=== PATIENT | male | born 1995 | race Two or more races ===

== ENCOUNTER 2023-06-28 22:38 | Emergency (ER) | payer OTHER ==
[2023-06-28 22:45] VITALS: BMI 31.6
[2023-06-29 01:01] LABS: EPI CELLS 2 /uL (0-25.1); HYALINE CASTS 0 /uL (0-3.1); PH,URINE 5.5 (5.0-8.0); URINE APPEARANCE CLEAR; URINE BACTERIA 2 /uL (0-1359); URINE BILIRUBIN NEGATIVE (NEGATIVE); URINE COLOR YELLOW; URINE GLUCOSE (UA) NEGATIVE (NEGATIVE); URINE KETONE NEGATIVE (NEGATIVE); URINE LEUK ESTERASE 1+ (NEGATIVE); URINE NITRITE NEGATIVE (NEGATIVE); URINE PROTEIN NEGATIVE (NEGATIVE); URINE RBC 7 /uL (0-23.9); URINE WBC 70 /uL (0-25.8)
[2023-06-29 02:00] LABS: BASO % 0.9 % (0-2.0); EOS % 2.5 % (0-4.5); HEMATOCRIT 42.3 % (35.4-49); HEMOGLOBIN 14.4 GM/dL (11.7-16.9); LYMPH % 42.4 % (8-40); MCH 29.8 pg (25.7-33.7); MCHC 33.9 g/dl (32.0-35.9); MEAN CELL VOLUME 87.7 fl (80-96); MEAN PLT VOLUME 7.3 fl (7.5-11.1); MONO % 11.3 % (3.8-10.2); NEUT % 42.9 % (42.8-82.8); PLATELET COUNT 291 10^3/uL (134-434); RBC 4.82 M/mm3 (4.00-5.60); RDW 13.1 % (11.9-15.9); WHITE BLOOD COUNT 7.6 K/mm3 (4.0-10.0)
[2023-06-29 02:25] LABS: POTASSIUM 3.8 mmol/L (3.5-5.1)
[2023-06-29 02:27] LABS: CALCIUM 9.2 mg/dL (8.5-10.1)
[2023-06-29 02:28] LABS: ALBUMIN 3.6 g/dl (3.4-5.0); BLOOD UREA NITROGEN 13.6 mg/dL (7-18)
[2023-06-29 02:31] LABS: CREATININE 1.1 mg/dL (0.55-1.3)
[2023-06-29 02:32] LABS: BILIRUBIN,TOTAL 0.4 mg/dL (0.2-1); TOT PROT 7.1 g/dl (6.4-8.2)
[2023-06-29 03:36] VITALS: BP 108/58; PULSE 84; RESP 15; TEMP 98.5
[2023-06-29] MEDS ORDERED: IBUPROFEN 400 MG TABLET (FP) PO ONE (04:11)
== END 2023-06-29 06:12 | disposition home or self-care (01) ==
LOC: JER 22:38
DX: R11.10 Vomiting, unspecified (principal); R53.1 Weakness; R42 Dizziness and giddiness; R31.9 Hematuria, unspecified; R51.9 Headache, unspecified
CPT/HCPCS: 36415; 70450-TC; 80053; 81003; 85025; 87086; 93005; 93010; 99285-25